=== PATIENT | male | born 1990 | race Hispanic/Latino ===

== ENCOUNTER 2018-04-16 17:26 | Emergency (ER) | payer OTHER ==
[2018-04-16 17:52] VITALS: PULSE 70
[2018-04-16] MEDS ORDERED: Oxycodone/Acetaminophen 5/325 mg Tab PO STA (18:13)
[2018-04-16] MEDS ORDERED: Oxycodone/Acetaminophen 5/325 mg Tab ONE (18:34)
--- NOTE | 2018-04-16 18:52 | ED PDOC ---
HPI: Back Time Seen by Provider: 04/16/18 17:55 Chief Complaint (Nursing): Back Pain Chief Complaint (Provider): Low back pain - Hx back pain History Per: Patient History/Exam Limitations: no limitations Onset/Duration Of Symptoms: Days (3 worse today ) Current Symptoms Are (Timing): Still Present Quality Of Discomfort: Sharp (Radiating down the right and left leg, more on the left ) Severity: Severe Pain Scale Rating Of: 10 Previous Symptoms: Back Pain Associated Symptoms: None Exacerbating Factor(s): Movement Additional Complaint(s): 27 yo male presents with acute onset of back pain. Pt states he has been having back pain for a year and has been seeing physical therapy. Pt states he has not seen physical therapy in the last few months however in the past it helped resolve acute back pain. Pt states the last 3 days the pain as been worse especially today. Pt denies saddle anesthesia and bladder/bowel incontinence. Pt states he took aleve which is not helping. Past Medical History Vital Signs: Last Vital Signs Temp 98.6 F 04/16/18 17:49 Pulse 70 04/16/18 17:49 Resp 20 04/16/18 17:49 BP 117/77 04/16/18 17:49 Pulse Ox 97 04/16/18 17:49 - Medical History PMH: Anxiety, Back Problems, GERD Denies: Chronic Kidney Disease - Immunization History Hx Tetanus Toxoid Vaccination: No Hx Influenza Vaccination: No Hx Pneumococcal Vaccination: No - Home Medications Home Medications: Ambulatory Orders Medication Instructions Recorded Cyclobenzaprine [Flexeril] 5 mg PO Q8 PRN #15 tab 10/30/16 traMADol [Ultram] 50 mg PO TID PRN #30 tab 10/30/16 diaZEpam [Valium] 5 mg PO Q6H PRN #15 tab 04/16/18 oxyCODONE/Acetaminophen [Percocet 1 ea PO Q6H PRN #15 tab 04/16/18 5/325 mg Tab] - Allergies Allergies/Adverse Reactions: Allergies Allergy/AdvReac Type Severity Reaction Status Date / Time No Known Allergies Allergy Verified 10/30/16 18:28 - ECG O2 Sat by Pulse Oximetry: 97 Disposition - Clinical Impression Clinical Impression: Low back pain - Patient ED Disposition Is Patient to be Admitted: No Counseled Patient/Family Regarding: Diagnosis, Need For Followup, Rx Given - Disposition Referrals: Raymond Egan III, MD [Staff Provider] - Disposition: Routine/Home Disposition Time: 20:04 Condition: GOOD Prescriptions: diaZEpam [Valium] 5 mg PO Q6H PRN #15 tab PRN Reason: Pain oxyCODONE/Acetaminophen [Percocet 5/325 mg Tab] 1 ea PO Q6H PRN #15 tab PRN Reason: Pain, Severe (8-10) Instructions: Low Back Pain in Adults Forms: [facility] (I[place]ic)
[2018-04-16 20:22] VITALS: BP 118/78; RESP 16; TEMP 98.4; O2SAT 99
--- NOTE | 2018-04-17 14:15 | RAD ---
Date of service: 04/16/2018 PROCEDURE: Radiographs of the Lumbar Spine. HISTORY: low back pain COMPARISON: Made with radiographs lumbar spine 10/30/2016 FINDINGS: BONES: Normal alignment. No listhesis. No fracture. Re- demonstrated is spina bifida occulta L5 segment DISC SPACES: Unremarkable. OTHER FINDINGS: None. IMPRESSION: No fractures no retropulsed fragments. Re- demonstrated is spina bifida occulta L5 segment Evidence of acute compression
== END 2018-04-16 20:22 | disposition home or self-care (01) ==
LOC: H.ER 17:26
DX: M54.5 Low back pain (principal)
CPT/HCPCS: 72100; 96372; 99283; J2930